=== PATIENT | female | born 1990 | race Caucasian/White ===

== ENCOUNTER 2023-12-13 00:06 | Inpatient (IN) | payer OTHER ==
[2023-12-13] MEDS ORDERED: Methylergonovine 0.2 MG/1 ML Amp IM PRN (00:13)
[2023-12-13] MEDS ORDERED: Sodium Chloride 0.9% 10 ML Syringe FLUSH PRN (00:13)
[2023-12-13] MEDS ORDERED: Acetaminophen 325 MG Tab PO PRN (00:13)
[2023-12-13] MEDS ORDERED: Misoprostol 400 MCG (4 X 100 MCG TAB) RECTAL PRN (00:13)
[2023-12-13] MEDS ORDERED: Carboprost Tromethamine 250 MCG/1 ML Amp IM PRN (00:13)
[2023-12-13] MEDS ORDERED: Tranexamic Acid 1,000 MG in Sodium Chloride 0.9% 100 ML IV PRN (00:13)
[2023-12-13] MEDS ORDERED: fentaNYL 100 MCG/2 ML SDV IVPUSH PRN (00:13)
[2023-12-13] MEDS ORDERED: Lactated Ringers 1,000 ML IV SCH (00:15)
[2023-12-13 00:41] LABS: HEMATOCRIT 35.8 % (37.0-47.0); HEMOGLOBIN 11.9 g/dL (12.0-16.0); MEAN CORPUSCULAR HEMOGLOBIN 29.8 pg (27.0-34.0); MEAN CORPUSCULAR HGB CONC 33.2 g/dL (33.0-35.0); MEAN CORPUSCULAR VOLUME 89.5 fL (80-100); WHITE BLOOD CELL COUNT,WBC 11.9 10^3/uL (5.0-10.0)
[2023-12-13] MEDS: Misoprostol 50 MCG (1/2 of 100 MCG) Tab PO SCH (01:01)
[2023-12-13] MEDS: Misoprostol 25 MCG (1/4 of 100 MCG) Tab PO PRN (05:00)
[2023-12-13] MEDS: Ondansetron 4 MG/2 ML SDV IVPUSH PRN (07:50)
[2023-12-13] MEDS: Lactated Ringers 1,000 ML IV ONE (08:04)
[2023-12-13] MEDS ORDERED: Phenylephrine HCl In 0.9% NaCl 1 MG/10 ML Syringe IVPUSH PRN (10:27)
[2023-12-13] MEDS ORDERED: ePHEDrine 50 MG/ML SDV IVPUSH PRN (10:27)
[2023-12-13] MEDS ORDERED: Ropivacaine 200 MG in Premix Bag 1 BAG EPIDUR SCH (10:30)
[2023-12-13] MEDS: Oxytocin/Normal Saline 30 UNIT/500 ML BAG IV SCH (14:10)
[2023-12-13] MEDS ORDERED: Simethicone 80 MG Tab.Chew PO PRN (15:02)
[2023-12-13] MEDS ORDERED: Oxytocin 10 Units/1 ML SDV IM PRN (15:02)
[2023-12-13] MEDS: Ibuprofen 800 MG Tab PO SCH (19:37)
[2023-12-13] MEDS: Docusate Sodium 100 MG Cap PO PRN (19:38)
[2023-12-13] MEDS: Witch Hazel Medicated Pads 100/Jar TOP PRN (19:39)
[2023-12-13] MEDS: Benzocaine/Menthol 20%-0.5% Spray 78 GM Cannister TOP PRN (19:39)
[2023-12-13] MEDS: Labetalol 100 MG Tab PO SCH (21:41)
[2023-12-14] MEDS: Acetaminophen 325 MG Tab PO PRN (02:11)
[2023-12-14] MEDS: Lidocaine 1% 30 ML SDV INJECT ONE (02:11)
[2023-12-14] MEDS: Prenatal Multivitamin with Calcium/Folic Acid/Iron Tab PO SCH (08:17)
[2023-12-14] MEDS: Ferrous Sulfate 325 MG Tab PO SCH (08:17)
[2023-12-15] MEDS ORDERED: Ropivacaine 100 ML EPIDUR ONE (12:44)
[2023-12-15] MEDS ORDERED: Ketorolac 30 MG/ML SDV IVPUSH ONE (12:44)
[2023-12-15] MEDS ORDERED: Ondansetron 4 MG/2 ML SDV IV ONE (12:44)
== END 2023-12-15 12:45 | disposition home or self-care (01) | DRG 807 ==
LOC: DL.OB 00:06 → UNDOADMOB 00:06 → OBSVTOIN 14:43 → DL.OB 14:43 → INTOOBSV 15:00 → OBSVTOIN 15:00 → DL.OB 15:00 → UNDODISIN 12-15 12:45
PROVIDERS: ADMIT Family Medicine; ATTEND Family Medicine
PROC: 10E0XZZ Delivery of Products of Conception, External Approach (ICD-10-PCS; principal; 2023-12-13)
PROC: 0KQM0ZZ Repair Perineum Muscle, Open Approach (ICD-10-PCS; 2023-12-13)
PROC: 10907ZC Drainage of Amniotic Fluid, Therapeutic from Products of Conception, Via Natural or Artificial Opening (ICD-10-PCS; 2023-12-13)
PROC: 3E033VJ Introduction of Other Hormone into Peripheral Vein, Percutaneous Approach (ICD-10-PCS; 2023-12-13)
PROC: 3E0P7VZ Introduction of Hormone into Female Reproductive, Via Natural or Artificial Opening (ICD-10-PCS; 2023-12-13)
PROC: 3E0S3BZ Introduction of Anesthetic Agent into Epidural Space, Percutaneous Approach (ICD-10-PCS; 2023-12-13)
PROC: 00HU33Z Insertion of Infusion Device into Spinal Canal, Percutaneous Approach (ICD-10-PCS; 2023-12-13)
DX: O42.02 Full-term premature rupture of membranes, onset of labor within 24 hours of rupture (principal); Z37.0 Single live birth; O16.4 Unspecified maternal hypertension, complicating childbirth; O69.81X0 Labor and delivery complicated by cord around neck, without compression, not applicable or unspecified; O70.1 Second degree perineal laceration during delivery; Z3A.39 39 weeks gestation of pregnancy
CPT/HCPCS: 01967; 36415; 51702; 59409; 85027; A9270-GY; J1885; J2405; J2590; J2795; J7120